=== PATIENT | female | born 1955 | race Two or more races ===

== ENCOUNTER 2025-09-17 19:18 | Emergency (ER) | payer MEDICARE, BC ==
[~2025-09-17] VITALS: Ht 167.6 cm; Wt 80.0 kg
[2025-09-17 19:21] VITALS: TEMP 97.8; O2SAT 99
[2025-09-17 20:36] LABS: CREATININE 1.0 mg/dL (0.6-1.0)
[2025-09-17 20:37] LABS: ETHANOL BLOOD < 10 mg/dL (<10); PROTEIN TOTAL 6.8 g/dL (6.0-8.3); UREA NITROGEN BLOOD 17 mg/dL (9-23)
[2025-09-17 20:38] LABS: ASPARTATE AMINOTRANSFERASE 22 IU/L (<34)
[2025-09-17 20:39] LABS: BILIRUBIN DIRECT 0.2 mg/dL (<=3.0); BILIRUBIN TOTAL 0.6 mg/dL (0.1-1.0)
[2025-09-17 20:59] LABS: HEMATOCRIT. 36.0 % (36.0-48.0); HEMOGLOBIN. 11.8 g/dL (12.0-16.0); MEAN PLATELET VOLUME 8.9 fl (7.4-10.4); PLATELET 218 x1000/uL (130-400); RED BLOOD CELL COUNT 3.93 mill/uL (4.2-5.4); RED CELL DISTRIBUTION WIDTH 12.9 % (11.6-14.6)
[2025-09-17 21:23] LABS: TROPONIN I HIGH SENSITIVITY 5 ng/L (3.0-34)
[2025-09-17 21:24] LABS: LYMPHOCYTES % MANUAL 3.0 % (20.0-60.0); MONOCYTES % MANUAL 3.0 % (2.0-8.0); NEUTROPHILS % MANUAL 94.0 % (45.0-75.0); PLATELET ESTIMATE NORMAL
[2025-09-17] MEDS: OXYCODONE HCL 10MG TABLET PO ONE (21:32)
[2025-09-17] MEDS: SODIUM CHLORIDE 0.9% 1,000 ML IV ONE (21:33)
[2025-09-17 22:41] VITALS: BP 146/97; PULSE 73; RESP 20; O2SAT 99
== END 2025-09-17 22:42 | disposition home or self-care (01) ==
LOC: ER 19:18 → CMPBEDREQ 09-19 08:26
DX: R55 Syncope and collapse (principal); I10 Essential (primary) hypertension; F19.90 Other psychoactive substance use, unspecified, uncomplicated; Z88.1 Allergy status to other antibiotic agents; Z88.2 Allergy status to sulfonamides
CPT/HCPCS: 80076; 80048; 80320; 85025; 84484; 36415; 73562; 96360; 99285; J7030; G0480